=== PATIENT | female | born 1995 | race Caucasian/White ===

== ENCOUNTER 2018-05-12 03:47 | Emergency (ER) | payer OTHER, SELFPAY ==
[2018-05-12 03:49] VITALS: BP 120/90; PULSE 124; RESP 18; TEMP 37.1; O2SAT 98; BMI 20.9
--- NOTE | 2018-05-12 04:07 | ED.DCSUM_ITS ---
- ER Visit Summary Date of Service: 05/12/18 Chief Complaint: Sore throat swollen glands muscle aches History of Present Illness: The patient is a 22 F who presents with sore throat and body aches. Over the last 2-3 days she complains of sore throat pain with swallowing and swollen glands in her neck. She reports chills and sweats but no documented fever. She complains of pain radiating to both ears. She does have a cough but no shortness of breath. She complains of muscle and joint aches. She complains of frontal sinus pressure. No vomiting or diarrhea. No urinary symptoms no rash. Physical Examination: Afebrile heart rate is 124 vitals otherwise normal Patient has posterior oropharyngeal erythema, status post tonsillectomy uvula midline no trismus clear speech Patient does have anterior cervical lymphadenopathy which is tender Heart is regular rhythm tachycardia Lungs are clear with no rales rhonchi or wheezing Abdomen soft Alert Test Results: Not indicated Emergency Department Course and Treatment: Patient's history and examination are consistent with a viral syndrome. She is tachycardic and reports some decreased oral intake but also notes that she is on Adderall and drank several cups of tea earlier. She states she is usually somewhat tachycardic. We discussed hydration with IV fluids and patient would prefer just push oral fluids at home. She states she has had similar presentation and had improvement of symptoms with steroid. She was given Decadron and ibuprofen here and discharged home. She understands to return for new or worsening symptoms. Treatment Plan: [] Disposition: Discharge Impression: Viral syndrome Pharyngitis This note was generated with [employer] dictation software. It may contain incorrect words, spelling, and punctuation that were not noted in review of the chart prior to signing ED Disposition - Plan for ED Patient: Chief Complaint: Sore Throat Referrals: Vani Abbott DO [Primary Care Provider] -
--- NOTE | 2018-05-12 04:07 | ED.DEP ---
ED Disposition - Plan for ED Patient: Chief Complaint: Sore Throat Instructions: ED Pharyngitis Viral, ED Viral Syndrome Referrals: Vani Abbott DO [Primary Care Provider] -
[2018-05-12] MEDS: Ibuprofen 600 MG Tablet PO (04:16)
== END 2018-05-12 04:30 | disposition home or self-care (01) ==
LOC: ED 04:25
PROVIDERS: Emergency Provider Emergency Medicine; Family Provider Internal Medicine; PCP Internal Medicine
DX: J02.9 Acute pharyngitis, unspecified (principal); B34.9 Viral infection, unspecified
CPT/HCPCS: 99281